=== PATIENT | female | born 1975 | race American Indian/Alaskan Native ===

== ENCOUNTER 2017-02-10 13:48 | Emergency (ER) | payer SELFPAY ==
[2017-02-10 15:42] VITALS: BP 112/72
[2017-02-10 16:15] LABS: Basophils % (Auto) 0.6 % (0.0-1.8); Eosinophils % (Auto) 0.8 % (0.0-4.3); Hematocrit 35.7 % (30.3-42.9); Hemoglobin 11.8 gm/dl (10.1-14.3); Mean Corpuscular HGB Conc 33 % (30-34); Mean Corpuscular Hemoglobin 31 pg (28-32); Mean Corpuscular Volume 95 fl (79-97); Platelet Count 175 K/mm3 (140-440); Red Blood Count 3.77 M/mm3 (3.65-5.03); Red Cell Distribution Width 16.9 % (13.2-15.2); White Blood Count 4.9 K/mm3 (4.5-11.0)
[2017-02-10 17:00] LABS: Bilirubin,Urine NEG (Negative); Blood,Urine MOD (Negative); Ketones,Urine TR mg/dL (Negative); Leukocyte Esterase,Urine NEG (Negative); Mucus,Urine FEW /HPF; Nitrite,Urine NEG (Negative); Urobilinogen,Urine < 2.0 mg/dL (<2.0)
[2017-02-10] MEDS ORDERED: TYLENOL PO ONE ×2 (19:53→19:55)
--- NOTE | 2017-02-12 11:01 | ED Elopement Review ---
ED Pt Elopement review - Results review Lab results: Laboratory Tests 02/10/17 02/10/17 02/10/17 15:50 15:50 15:50 WBC 4.9 RBC 3.77 Hgb 11.8 Hct 35.7 MCV 95 MCH 31 MCHC 33 RDW 16.9 H Plt Count 175 Lymph % (Auto) 39.2 H Marshall % (Auto) 9.7 H Eos % (Auto) 0.8 Baso % (Auto) 0.6 Lymph # 1.9 Marshall # 0.5 Eos # 0.0 Baso # 0.0 Seg Neutrophils % 49.7 Seg Neutrophils # 2.5 HCG, Quant 4726 H Urine Color Urine Turbidity Urine pH Ur Specific [place] Urine Protein Urine Glucose (UA) Urine Ketones Urine Blood Urine Nitrite Urine Bilirubin Urine Urobilinogen Ur Leukocyte Esterase Urine WBC (Auto) Urine RBC (Auto) U Epithel Cells (Auto) Urine Mucus Blood Type AB POSITIVE Antibody Screen Negative 02/10/17 16:12 WBC RBC Hgb Hct MCV MCH MCHC RDW Plt Count Lymph % (Auto) Marshall % (Auto) Eos % (Auto) Baso % (Auto) Lymph # Marshall # Eos # Baso # Seg Neutrophils % Seg Neutrophils # HCG, Quant Urine Color Yellow Urine Turbidity Clear Urine pH 8.0 H Ur Specific [place] 1.023 Urine Protein 30 mg/dl Urine Glucose (UA) Neg Urine Ketones Tr Urine Blood Mod Urine Nitrite Neg Urine Bilirubin Neg Urine Urobilinogen < 2.0 Ur Leukocyte Esterase Neg Urine WBC (Auto) 1.0 Urine RBC (Auto) 3.0 U Epithel Cells (Auto) 2.0 Urine Mucus Few Blood Type Antibody Screen - Call Back decision Pt Call Back Decision: Call pt to return to ED [facility] (needs ectopic work-up)
== END 2017-02-10 20:00 | disposition left against medical advice (07) ==
LOC: ED 13:48
DX: O20.9 Hemorrhage in early pregnancy, unspecified (principal); Z3A.01 Less than 8 weeks gestation of pregnancy; F17.200 Nicotine dependence, unspecified, uncomplicated; Z53.21 Procedure and treatment not carried out due to patient leaving prior to being seen by health care provider
CPT/HCPCS: 36415; 81001; 84702; 85025; 86850; 86900; 86901